=== PATIENT | male | born 1965 | race Caucasian/White ===

== ENCOUNTER 2017-09-06 07:39 | Emergency (ER) | payer OTHER ==
[~2017-09-06] VITALS: Ht 187.9 cm; Wt 79.4 kg
[2017-09-06] MEDS ORDERED: AMOXICILLIN500 M2 PO (07:54)
== END 2017-09-06 08:19 | disposition home or self-care (01) ==
LOC: ED 07:39
DX: K04.7 Periapical abscess without sinus (principal); F17.200 Nicotine dependence, unspecified, uncomplicated

== ENCOUNTER 2018-06-25 07:53 | Emergency (ER) | payer OTHER ==
[~2018-06-25] VITALS: Ht 187.9 cm; Wt 81.6 kg
[~2018-06-25 07:53] MED LIST: AMOXICILLIN500 M2 PO
[2018-06-25] MEDS ORDERED: PENICILLIN-VK500 MG PO (07:59)
== END 2018-06-25 08:09 | disposition home or self-care (01) ==
LOC: ED 07:53
DX: K02.9 Dental caries, unspecified (principal); F17.210 Nicotine dependence, cigarettes, uncomplicated

== ENCOUNTER 2019-06-29 12:01 | Emergency (ER) | payer OTHER ==
[~2019-06-29] VITALS: Ht 187.9 cm; Wt 90.7 kg
[~2019-06-29 12:01] MED LIST changes: +PENICILLIN-VK500 MG PO
[2019-06-29] MEDS ORDERED: ZOFRAN4 MG PO (14:39)
== END 2019-06-29 14:46 | disposition home or self-care (01) ==
LOC: ED 12:01
DX: S00.81XA Abrasion of other part of head, initial encounter (principal); F07.81 Postconcussional syndrome; Z79.2 Long term (current) use of antibiotics; W22.09XA Striking against other stationary object, initial encounter; Y93.01 Activity, walking, marching and hiking; Y92.89 Other specified places as the place of occurrence of the external cause; Y99.8 Other external cause status

== ENCOUNTER 2019-08-17 03:20 | Inpatient (IN) | payer OTHER ==
[2019-08-17] VITALS (8 sets, daily range): BP systolic 102–138; BP diastolic 62–91
[~2019-08-17] VITALS: Ht 187.9 cm; Wt 76.2 kg
--- NOTE | ~2019-08-17 | EKG ---
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
--- NOTE | ~2019-08-17 | CON ---
[place], [place] REPORT OF CONSULTATION NAME: ELLI MURILLO UNIT #: [id number] ROOM: 412 DOCTOR: AMEENA CASIANO,DEJA BIRTHDATE: [birth year] DOS: 08/17/2019 This note is an addendum to the notes done by Dr. Chaudhari. REASON FOR CONSULTATION: Chest pain. HISTORY OF PRESENT ILLNESS: The patient is a 54-year-old gentleman with history of tobacco use, admitted for chest pain while he was walking in the morning. He regularly walks over 3 miles a day. Yesterday while walking developed some left-sided chest pain, intermittent. He was admitted to the hospital and Cardiology consulted for further recommendations. His cardiac enzymes are negative. FOCUSED CARDIAC EXAMINATION: HEART: Regular rhythm, no S3, no palpable thrills. ABDOMEN: Nontender. EXTREMITIES: Showed no edema. LUNGS: Clear to auscultation. EKG, RHYTHM STRIPS AND LABS: Reviewed. IMPRESSION: 1. Chest pain, myocardial infarction ruled out. 2. Tobacco use. 3. History of drug use, currently on Suboxone. RECOMMENDATIONS: Schedule for a stress test today. If this test is unremarkable the patient can be discharged home. The patient counseled to quit smoking. This dictation is an addendum to the notes done by Dr. Chaudhari. DEJA LINDQUIST MD CM:CONSTR:REPORT OF CONSULTATION 1345 08/17/19 1513 interface
--- NOTE | ~2019-08-17 | ST ---
[place], [place] EXERCISE STRESS TEST REPORT NAME: ELLI MURILLO [facility] #: [id number] UNIT #: [id number] ROOM: 412 DOCTOR: AMEENA CASIANO,DEJA BIRTHDATE: [birth year] DOS: 08/17/2019 LEXISCAN STRESS TEST REASON FOR TEST: Chest pain. PHYSICAL EXAMINATION NECK: Supple. LUNGS: Clear anteriorly. HEART: Regular rhythm. PROTOCOL: Lexiscan protocol. Maximum heart rate 106, peak blood pressure 108/66. SYMPTOMS: The patient is chest pain free. EKG: Resting EKG showed sinus rhythm. Stress EKG showed no ischemia, no arrhythmias. CONCLUSION: Clinically, the patient is chest pain free. EKG nonischemic. POST-STRESS COMPLICATIONS: None. The patient received a total of 0.4 mg Lexiscan. COMMENT: Initially, the patient was scheduled for exercise treadmill test due to his low blood pressure, it was changed to Lexiscan stress. DEJA LINDQUIST MD CM:STRESS:EXERCISE STRESS TEST REPORT [id number] 1402 DEJA LINDQUIST MD
--- NOTE | ~2019-08-17 | EKG ---
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
--- NOTE | ~2019-08-17 | EKG ---
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
[~2019-08-17 03:20] MED LIST changes: +ZOFRAN4 MG PO
[2019-08-17] MEDS ORDERED: SUBOXONE 8 MG-1 EACH SL (03:37)
[2019-08-17 03:50] LABS: BASO # 0.1 10*3/uL (0.0-0.1); BASO % 0.5 % (0.0-1.0); EOS # 0.1 10*3/uL (0.0-0.4); EOS % 1.2 % (1.0-4.0); HEMATOCRIT 43.8 % (42.0-52.0); HEMOGLOBIN 14.6 g/dl (14.0-18.0); LYMPH # 2.2 10*3/uL (1.3-4.4); LYMPH % 20.7 % (27.0-41.0); MEAN CELL VOLUME 92.4 fl (80.0-94.0); MEAN CORPUSCULAR HGB 30.8 pg (27.0-31.0); MEAN CORPUSCULAR HGB CONC 33.3 g/dl (33.0-37.0); MEAN PLATELET VOLUME 10.9 fl (9.6-12.3); MONO # 0.6 10*3/uL (0.1-1.0); MONO % 5.7 % (3.0-9.0); NEUT # 7.6 10*3/uL (2.3-7.9); NEUT % 71.7 % (47.0-73.0); PLATELET COUNT AUTOMATED 233 10*3/uL (130-400); RED BLOOD COUNT 4.74 10*6/uL (4.50-5.90); RED CELL DISTRI WIDTH 12.6 % (0-14.5); WHITE BLOOD COUNT 10.6 10*3/uL (4.8-10.8)
[2019-08-17 04:03] LABS: ACT PARTIAL THROMBO TIME 27.6 SECONDS (20.0-32.1)
[2019-08-17 04:05] LABS: ALBUMIN 3.9 gm/dl (3.1-4.5); ALKALINE PHOSPHATASE 96 U/L (45-117); BUN 14 mg/dl (7-24); CHLORIDE 105 mmol/L (98-107); CREATININE 1.14 mg/dL (0.70-1.30); POTASSIUM 3.7 mmol/L (3.5-5.1); SGOT/AST 35 IU/L (3-35); SGPT/ALT 20 U/L (12-78); SODIUM 136 mmol/L (136-145); TOTAL PROTEIN 7.4 gm/dL (6.4-8.2)
[2019-08-17 04:08] LABS: TROPONIN I < 0.015 ng/ml (<0.045)
--- NOTE | 2019-08-17 05:40 | NUR ---
A 54, admitted to , under the services of BRYN Ponce DO with a diagnosis of CHEST PAIN. Chief complaint is CHEST PAIN STARTED YESTERDAY AM. Patient arrived via stretcher from ER. Monitor applied. Initial assessment completed. Vital signs taken and recorded. BRYN PONCE DO notified of admission to the unit. Orders received. See assessment for past medical history, medications and allergies. Patient and/or family oriented to unit. [facility] visitation policy reviewed. Clothing/patient valuable form completed. CLAUDIA AMANDA
--- NOTE | 2019-08-17 07:58 | NUR ---
MESSAGE LEFT WITH CARDIOLOGY NOTIFIED O0F CONSULT FOR DR. SARAVIA
[2019-08-17 08:34] LABS: CHOLESTEROL 130 mg/dL (<200); HDL CHOLESTEROL 52 mg/dl (40-60); LDL CHOLESTEROL 63 mg/dL (9-159); TRIGLYCERIDES 73 mg/dl (<150); VLDL CHOLESTEROL 15 mg/dL (6-40)
--- NOTE | 2019-08-17 09:46 | NUR ---
PATIENT OFF FLOOR FOR STRESS TEST
--- NOTE | 2019-08-17 11:00 | NUR ---
INFORMED CONSENT OBTAINED FOR A CARDIOLITE STRESS TEST WITH DR. LINDQUIST. RESTING EKG SINUS SHY WITH A SUPINE HT RT OF 60, WITH A BP OF 100/58 AND A HT RT OF 76, WITH A BP OF 86/60 IN THE STANDING POSITION. UPON STANING, THE PATIENT FELT "LIGHTHEADED AND DIZZY." AT THIS TIME DR CARRASCO WANTED TO SWITCH THE TEST TO A LEXISCAN. SPO2 96% VIA RA, WITH CLEAR DIMINISHED BREATH SOUNDS. HT RT 63 WITH A BP OF 108/66 IN THE SITITNG POSITION. LEXISCAN 0.4 MG GIVEN OVER 10 SECONDS. DEVELOPED A "WARM FEELING, SOB" THAT WAS RELIEVED IN RECOVERY. CHEST DISCOMFORT VOICED PRIOR TO TESTING WAS 4/10, AND NEVER CHANGED. HAD A PEAK HT RT OF 93, WITH A BP OF 108/62. LAST RECOVERY HT RT OF 88, WITH A BP OF 102/54. AWAITING NUCLEAR IMAGING IN STABLE CONDITION.
--- NOTE | 2019-08-17 17:00 | NUR ---
HEART MONITOR REMOVED, IV REMOVED Discharge instructions reviewed with patient/family. Patient receptive and verbalizes understanding. Follow-up care arranged. Written instructions given to patient/family. ROMEO FABIAN
== END 2019-08-17 17:00 | disposition home or self-care (01) | DRG 243 ==
LOC: ED 03:20 → EDHOLD 05:19 → 4E 05:19
PROVIDERS: Emergency Medicine; Internal Medicine; ADMIT Internal Medicine
PROC: 4A02XM4 Measurement of Cardiac Total Activity, External Approach (ICD-10-PCS; principal; 2019-08-17)
PROC: 3E073KZ Introduction of Other Diagnostic Substance into Coronary Artery, Percutaneous Approach (ICD-10-PCS; 2019-08-17)
DX: K21.9 Gastro-esophageal reflux disease without esophagitis (principal); R03.0 Elevated blood-pressure reading, without diagnosis of hypertension; F17.210 Nicotine dependence, cigarettes, uncomplicated; R73.9 Hyperglycemia, unspecified; R00.1 Bradycardia, unspecified; Z71.6 Tobacco abuse counseling; Z82.49 Family history of ischemic heart disease and other diseases of the circulatory system; Z79.899 Other long term (current) drug therapy; F41.9 Anxiety disorder, unspecified

== ENCOUNTER 2022-08-11 09:16 | Emergency (ER) | payer BC ==
[~2022-08-11] VITALS: Ht 187.9 cm; Wt 78.5 kg
[~2022-08-11 09:16] MED LIST changes: +SUBOXONE 8 MG-1 EACH SL
[2022-08-11] MEDS ORDERED: PENICILLIN VK500 MG PO (09:30)
== END 2022-08-11 09:43 | disposition home or self-care (01) ==
LOC: ED 09:16
DX: K02.9 Dental caries, unspecified (principal)

== ENCOUNTER 2022-11-15 09:30 | Emergency (ER) | payer BC ==
[~2022-11-15 09:30] MED LIST changes: +PENICILLIN VK500 MG PO
[2022-11-15] MEDS ORDERED: AMOX-CLAV 875-1 EACH PO (10:32)
== END 2022-11-15 10:42 | disposition home or self-care (01) ==
LOC: ED 09:30
DX: K02.9 Dental caries, unspecified (principal); F17.200 Nicotine dependence, unspecified, uncomplicated

== ENCOUNTER 2023-01-17 10:13 | Emergency (ER) | payer OTHER ==
[~2023-01-17] VITALS: Wt 77.1 kg
[~2023-01-17 10:13] MED LIST changes: +AMOX-CLAV 875-1 EACH PO
[2023-01-17] MEDS ORDERED: AMOX-CLAV 875-1 EACH PO (10:41)
== END 2023-01-17 10:56 | disposition home or self-care (01) ==
LOC: ED 10:13
DX: K08.89 Other specified disorders of teeth and supporting structures (principal); F17.200 Nicotine dependence, unspecified, uncomplicated